=== PATIENT | female | born 1995 | race Caucasian/White ===

== ENCOUNTER 2022-03-25 13:51 | Inpatient (IN) ==
[2022-03-25] MEDS ORDERED: LACTATED RINGERS 1,000 ML IV ONE ×2 (14:51→16:02)
[2022-03-25] MEDS ORDERED: CARBOPROST TROMETHAMINE 250 MCG/ML AMP IM PRN (15:05)
[2022-03-25] MEDS ORDERED: OXYTOCIN/LR 20 UNIT/1,000 ML BAG IV ONE ×3 (15:05→22:52)
[2022-03-25] MEDS ORDERED: miSOPROStoL 200 MCG TABLET RECTAL PRN (15:05)
[2022-03-25] MEDS ORDERED: METHYLERGONOVINE 0.2 MG/1 ML AMP IM PRN (15:05)
[2022-03-25] MEDS ORDERED: CLINDAMYCIN INJ 900 MG/50 ML PREMIX IV ONE (15:05)
[2022-03-25] MEDS ORDERED: TRANEXAMIC ACID 1,000 MG in SODIUM CHLORIDE 0.9% 100 ML IV PRN (15:05)
[2022-03-25] MEDS ORDERED: FAMOTIDINE 20 MG/2 ML VIAL IV ONE (15:05)
[2022-03-25] MEDS ORDERED: CITRIC ACID/SODIUM CITRATE 30 ML UDCUP PO ONE (15:05)
[2022-03-25] MEDS ORDERED: SODIUM CHLORIDE 0.9% 0 ML IV ONE (15:20)
[2022-03-25] MEDS ORDERED: miSOPROStoL 200 MCG TABLET ONE (15:20)
[2022-03-25] MEDS ORDERED: METHYLERGONOVINE 0.2 MG/1 ML AMP ONE (15:20)
[2022-03-25] MEDS ORDERED: CARBOPROST TROMETHAMINE 250 MCG/ML AMP IM ONE (15:20)
[2022-03-25] MEDS ORDERED: TRANEXAMIC ACID 1,000 MG/10 ML VIAL ONE (15:20)
[2022-03-25 15:28] LABS: Basophils % 0.3 % (0.0-0.8); Eosinophils % 0.2 % (0.00-10.9); Hematocrit 34.6 VOL% (35.7-47.0); Hemoglobin 11.6 GM/DL (12.0-16.0); Immature Granulocytes % 1.7 %; Immature Granulocytes Absolute 0.24 #; Lymphocytes # 1.8 10*3/uL (1.4-4.0); Lymphocytes % 13.1 % (21.3-54.2); Mean Corpuscular HGB Conc 33.5 GM/DL (32-36); Mean Platelet Volume 10.7 FL (9.6-12.0); Monocytes # 1.2 10*3/uL (0.11-0.8); Monocytes % 8.8 % (1.7-12.7); Neutrophils % 75.9 % (38.7-73.9); Platelet Count 244 T/CUMM (130-400); Red Blood Count 3.76 MC/CUMM (3.8-5.5); Red Cell Distribution Width 13.6 % (9.3-17.3)
[2022-03-25] MEDS ORDERED: METOCLOPRAMIDE 10 MG/2 ML VIAL ONE (15:36)
[2022-03-25] MEDS ORDERED: MIDAZOLAM 2 MG/2 ML VIAL ONE (15:36)
[2022-03-25] MEDS ORDERED: ONDANSETRON 4 MG/2 ML VIAL ONE (15:36)
[2022-03-25] MEDS ORDERED: DEXMEDETOMIDINE 200 MCG/2 ML VIAL ONE (15:43)
[2022-03-25] MEDS ORDERED: buprenorphine HCL 0.3 MG/ML VIAL ONE (15:43)
[2022-03-25 15:56] LABS: Alanine Aminotransferase 15 U/L (13-56); Albumin 2.8 G/DL (3.4-5.0); Alkaline Phosphatase 152 U/L (45-117); Aspartate Amino Transferase 13 U/L (0-37); Bilirubin,Total < 0.39 MG/DL (0.20-1.00); Blood Urea Nitrogen 8 MG/DL (7-18); Calcium 8.8 MG/DL (8.5-10.1); Carbon Dioxide 25 MMOL/L (21-32); Chloride 108 MMOL/L (98-107); Glucose 71 MG/DL (74-106); Osmolality,Calculated 272.5 MOS/KG (273-304); Sodium 139 MMOL/L (136-145); Total Protein 6.6 G/DL (6.4-8.2)
[2022-03-25] MEDS ORDERED: GLYCOPYRROLATE 0.4 MG/2 ML VIAL ONE (16:02)
[2022-03-25] MEDS ORDERED: PHENYLEPHRINE 1 MG/10 ML SYRINGE IV ONE (16:02)
[2022-03-25] MEDS ORDERED: DEXAMETHASONE 4 MG/1 ML VIAL ONE (16:24)
[2022-03-25 16:32] LABS: Cord Arterial Blood HCO3 22.7 MMOL/L
[2022-03-25 16:35] LABS: Cord Venous Blood HCO3 23.3 MMOL/L; Cord Venous Blood PCO2 46.5 MMHG; Cord Venous Blood PO2 32.3
[2022-03-25 17:49] LABS: Bilirubin,Urine Negative (Negative); Blood, Urine Negative (Negative); Glucose,Urine (UA) Negative (Negative); Ketones,Urine 5 mg/dL (Negative); Mucus,Urine Occasional /LPF (Occasional); Nitrite,Urine Negative (Negative); Protein,Urine Negative (Negative); RBC,Urine 1 /HPF (0-4); Urine Appearance CLEAR (Clear); Urine Color Yellow (Yellow); Urine Urobilinogen < 2.0 eU/dL (<2.0)
[2022-03-25] MEDS ORDERED: DIPH/TET/ACEL PERT BOOSTER VACCINE 0.5 ML VIAL IM ONE (22:52)
[2022-03-25] MEDS ORDERED: HYDROCORTISONE 2.5% RECTAL CREAM 30 GM TUBE TOP PRN (22:52)
[2022-03-25] MEDS ORDERED: ACETAMINOPHEN 325 MG TABLET PO PRN (22:52)
[2022-03-25] MEDS ORDERED: BISACODYL 10 MG SUPP RECTAL PRN (22:52)
[2022-03-25] MEDS ORDERED: LANOLIN 50% CREAM 0.3 OZ TUBE TOP PRN (22:52)
[2022-03-25] MEDS ORDERED: BENZOCAINE 20%/MENTHOL 0.5% SPRAY 56 GM CAN TOP PRN (22:52)
[2022-03-25] MEDS ORDERED: oxyCODONE/ACETAMINOPHEN 5-325 MG TABLET PO PRN (22:52)
[2022-03-25] MEDS ORDERED: ONDANSETRON 4 MG/2 ML VIAL IV PRN (22:52)
[2022-03-25] MEDS ORDERED: MEASLES/MUMPS/RUBELLA VACCINE 0.5 ML VIAL SUBCUT ONE (22:52)
[2022-03-25] MEDS ORDERED: WITCH HAZEL PADS 100/JAR TOP PRN (22:52)
[2022-03-25] MEDS ORDERED: RHO(D) IMMUNE GLOBULIN 300 MCG SYRINGE IM ONE (22:52)
[2022-03-25] MEDS: ACETAMINOPHEN 500 MG TABLET PO SCH (23:17)
[2022-03-25] MEDS: KETOROLAC 30 MG/1 ML VIAL IV SCH (23:27)
[2022-03-25] MEDS: CLINDAMYCIN INJ 900 MG/50 ML PREMIX IV SCH (23:27)
[2022-03-26] MEDS: DOCUSATE SODIUM 100 MG CAPSULE PO SCH ×3 (01:37→21:45)
[2022-03-26] MEDS: ACETAMINOPHEN 500 MG TABLET PO SCH ×3 (04:30→17:56)
[2022-03-26] MEDS: KETOROLAC 30 MG/1 ML VIAL IV SCH ×2 (04:36→11:35)
[2022-03-26 05:11] LABS: Basophils % 0.2 % (0.0-0.8); Hematocrit 28.7 VOL% (35.7-47.0); Hemoglobin 9.7 GM/DL (12.0-16.0); Immature Granulocytes % 1.1 %; Immature Granulocytes Absolute 0.23 #; Lymphocytes # 1.4 10*3/uL (1.4-4.0); Mean Corpuscular HGB Conc 33.8 GM/DL (32-36); Mean Corpuscular Volume 92.3 FL (87-102); Mean Platelet Volume 10.9 FL (9.6-12.0); Monocytes # 1.2 10*3/uL (0.11-0.8); Monocytes % 5.8 % (1.7-12.7); Neutrophils % 85.9 % (38.7-73.9); Platelet Count 254 T/CUMM (130-400); Red Blood Count 3.11 MC/CUMM (3.8-5.5); Red Cell Distribution Width 13.6 % (9.3-17.3); White Blood Count 20.2 T/CUMM (4-12)
[2022-03-26 05:34] LABS: Lymphocytes 5 % (20-55); Platelet Estimate Adequate; Total Cells Counted 100
[2022-03-26] MEDS: CLINDAMYCIN INJ 900 MG/50 ML PREMIX IV SCH (07:04)
[2022-03-26] MEDS ORDERED: SIMETHICONE CHEW 80 MG TABLET PO PRN (09:37)
[2022-03-26] MEDS: MAGNESIUM HYDROXIDE SUSP 30 ML UDCUP PO PRN ×2 (09:55→21:45)
[2022-03-26] MEDS: IBUPROFEN 800 MG TABLET PO PRN (16:28)
[2022-03-26] MEDS ORDERED: RHO(D) IMMUNE GLOBULIN 300 MCG SYRINGE IM ONE (21:45)
[2022-03-27] MEDS: IBUPROFEN 800 MG TABLET PO PRN ×2 (01:58→08:28)
[2022-03-27] MEDS: oxyCODONE/ACETAMINOPHEN 5-325 MG TABLET PO PRN ×2 (03:19→10:42)
[2022-03-27] MEDS: DOCUSATE SODIUM 100 MG CAPSULE PO SCH (08:28)
[2022-03-27] MEDS: LACTATED RINGERS 1,000 ML IV SCH ×2 (11:25→11:26)
[2022-03-27 12:16] VITALS: BP 111/64
== END 2022-03-27 14:35 | disposition home or self-care (01) | DRG 785 ==
LOC: N.LDOUT 13:51 → N.LD 13:53 → N.OB 22:48
PROVIDERS: ADMIT Specialist; ATTEND Specialist